=== PATIENT | male | born 1960 | race African-American/Black ===

== ENCOUNTER 2016-10-15 01:42 | Inpatient (IN) | payer OTHER ==
[~2016-10-15] VITALS: Ht 167.6 cm; Wt 95.3 kg
[2016-10-15 02:11] LABS: BASO % 1 % (0-3); EOS % 1 % (0-3); HEMATOCRIT 38.1 % (39.0-53.0); HEMOGLOBIN 12.2 g/dL (13.0-17.5); LYMPH # 1.7 x10^3/uL (1.0-4.8); LYMPH % 42 % (24-48); MEAN CORPUSCULAR HEMOGLOBIN 27 pg (25-35); MEAN CORPUSCULAR HGB CONC 32 g/dL (31-37); MEAN CORPUSCULAR VOLUME 84 fL (79-100); MONO % 10 % (0-9); NEUT % 46 % (31-73); PLATELET COUNT 143 x10^3/uL (140-400); RED BLOOD COUNT 4.52 x10^6/uL (4.30-5.70); RED CELL DISTRIBUTION WIDTH 14.7 % (11.5-14.5); WHITE BLOOD COUNT 4.1 x10^3/uL (4.0-11.0)
--- NOTE | 2016-10-15 02:16 | PHYS DOC ---
Past Medical History Past Medical History: GERD, High Cholesterol, Hypertension, NH Additional Past Medical Histor: STATES NH'S X 3-4, NO STENTS PLACED, HEMORRHOIDS,TINEA PEDIS Past Surgical History: Other Additional Past Surgical Histo: HEMORRHOIDS Alcohol Use: None Drug Use: None Adult General Chief Complaint Chief Complaint: CHEST PAIN HPI HPI Patient is a 56 year old male who presents with chest pain that started at midnight tonight while at rest. He states he had severe central chest pressure that radiated toward his neck. This lasted possibly 45 minutes. He was given 2 nitroglycerin in [facility] without relief of his symptoms, but his symptoms resolved prior to EMS transport. He is currently asymptomatic. He was not given aspirin due to aspirin allergy. He denies lightheadedness, nausea or vomiting, fever or chills, cough, hemoptysis, leg pain or swelling, abdominal pain, diarrhea, dysuria. 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 He further clarifies this to say that he has had multiple admissions for chest pain , but never had a heart catheterization and does not actually know if these were confirmed MIs. He cannot name a facility where he was prior treated. He cannot name a voice studies director that he has seen prior. Review of Systems Review of Systems Constitutional: Denies fever or chills [] Eyes: Denies change in visual acuity, redness, or eye pain [] HENT: Denies nasal congestion or sore throat [] Respiratory: Denies cough or shortness of breath [] Cardiovascular: No additional information not addressed in HPI [] GI: Denies abdominal pain, nausea, vomiting, bloody stools or diarrhea [] : Denies dysuria or hematuria [] Musculoskeletal: Denies back pain or joint pain [] Integument: Denies rash or skin lesions [] Neurologic: Denies headache, focal weakness or sensory changes [] Endocrine: Denies polyuria or polydipsia [] Allergies Allergies Allergies Coded Allergies Type Severity Reaction Last Updated Verified aspirin Allergy Unknown 10/15/16 Yes Physical Exam Physical Exam Constitutional: Well developed, well nourished, no acute distress, non-toxic appearance. [] HENT: Normocephalic, atraumatic, bilateral external ears normal, oropharynx moist, nose normal. [] Eyes: PERRLA, EOMI. [] Neck: Normal range of motion, supple. [] Cardiovascular:Heart rate regular rhythm [] Lungs & Thorax: Bilateral breath sounds clear to auscultation. No chest wall tenderness [] Abdomen: Bowel sounds normal, soft, no tenderness. [] Skin: Warm, dry, no erythema, no rash. [] Back: No tenderness, no CVA tenderness. [] Extremities: No tenderness, ROM intact, bilateral trace lower extremity edema, no palpable cord. [] Neurologic: Alert and oriented X 3, normal motor function, normal sensory function, no focal deficits noted. [] Psychologic: Affect normal, judgement normal, mood normal. [] Current Patient Data Vital Signs Vital Signs Date Time Temp Pulse Resp B/P Pulse Ox O2 Delivery O2 Flow Rate FiO2 10/15/16 01:42 98.7 64 18 141/87 97 Room Air 98.7 Lab Values Laboratory Tests Test 10/15/16 02:00 White Blood Count 4.1x10^3/uL (4.0-11.0) Red Blood Count 4.52x10^6/uL (4.30-5.70) Hemoglobin 12.2g/dL (13.0-17.5) L Hematocrit 38.1% (39.0-53.0) L Mean Corpuscular Volume 84fL (79-100) Mean Corpuscular Hemoglobin 27pg (25-35) Mean Corpuscular Hemoglobin Concent 32g/dL (31-37) Red Cell Distribution Width 14.7% (11.5-14.5) H Platelet Count 143x10^3/uL (140-400) Neutrophils (%) (Auto) 46% (31-73) Lymphocytes (%) (Auto) 42% (24-48) Monocytes (%) (Auto) 10% (0-9) H Eosinophils (%) (Auto) 1% (0-3) Basophils (%) (Auto) 1% (0-3) Neutrophils # (Auto) 1.9x10^3uL (1.8-7.7) Lymphocytes # (Auto) 1.7x10^3/uL (1.0-4.8) Monocytes # (Auto) 0.4x10^3/uL (0.0-1.1) Eosinophils # (Auto) 0.1x10^3/uL (0.0-0.7) Basophils # (Auto) 0.0x10^3/uL (0.0-0.2) Sodium Level 142mmol/L (136-145) Potassium Level 4.1mmol/L (3.5-5.1) Chloride Level 108mmol/L (98-107) H Carbon Dioxide Level 28mmol/L (21-32) Anion Gap 6 (6-14) Blood Urea Nitrogen 12mg/dL (8-26) Creatinine 1.2mg/dL (0.7-1.3) Estimated GFR (Cockcroft-Gault) 75.5 Glucose Level 122mg/dL (70-99) H Calcium Level 8.9mg/dL (8.5-10.1) Troponin I Quantitative 0.033ng/mL (0.000-0.055) OR-Ewi-Q-Type Natriuretic Peptide 23pg/mL (0-124) Laboratory Tests 10/15/16 02:00 Laboratory Tests 10/15/16 02:00 EKG EKG EKG as interpreted by me and sinus rhythm with PACs, rate 66, DE 204, QTc 423, no ST-T changes Radiology/Procedures Radiology/Procedures Chest xray as interpreted by me with no acute cardiopulmonary disease process Course & Med Decision Making Course & Med Decision Making Pertinent Labs and Imaging studies reviewed. (See chart for details) Workup is unremarkable. JIMENEZ score is 1. He has frequent PVCs on his EKG. He remains without chest pain. Given age and comorbidities, will admit for ACS rule out and cardiology consultation. Discussed case with Dr. Candelaria, who will admit. Cardiology consultation placed. Dragon Disclaimer Dragon Disclaimer This electronic medical record was generated, in whole or in part, using a voice recognition dictation system. Departure Departure Impression: Primary Impression: Chest pain Disposition: ADMITTED INPATIENT Condition: STABLE Referrals: NO PCP (PCP) Problem Qualifiers Primary Impression: Chest pain Chest pain type: other chest pain Qualified Code: R07.89 - Other chest pain Mohit ALLEN MD Oct 15, 2016 02:15
[2016-10-15 02:25] LABS: CALCIUM 8.9 mg/dL (8.5-10.1); CREATININE 1.2 mg/dL (0.7-1.3); GFR 75.5; POTASSIUM 4.1 mmol/L (3.5-5.1)
[2016-10-15 02:36] LABS: BARBITURATES NEG (NEG); BENZODIAZEPINES NEG (NEG); CANNABINOIDS NEG (NEG); COCAINE NEG (NEG); ETHANOL, URINE NEG (NEG); METHADONE NEG (NEG); OPIATES NEG (NEG); PHENCYCLIDINE NEG (NEG)
[2016-10-15] MEDS ORDERED: NITROGLYCERIN SUBLINGUAL 0.4 MG BOTTLE OF 25. SL PRN ×2 (02:45→08:30)
[2016-10-15] MEDS ORDERED: ACETAMINOPHEN 325 MG TABLET. PO PRN (02:45)
[2016-10-15] MEDS ORDERED: ONDANSETRON PF 4 MG/2 ML VIAL. IV PRN (02:45)
[2016-10-15 03:07] VITALS: BP 131/88
[2016-10-15] MEDS ORDERED: LISI40TA PO (04:19)
[2016-10-15] MEDS ORDERED: NITR0.4T6 SL (04:19)
[2016-10-15] MEDS ORDERED: DOCU-27 PO (04:19)
[2016-10-15] MEDS ORDERED: DIBU28OI RC (04:19)
[2016-10-15] MEDS ORDERED: ATOR10TA60 PO (04:19)
[2016-10-15] MEDS ORDERED: MELO-156 PO (04:19)
[2016-10-15] MEDS ORDERED: AMLO5TAB2 PO (04:19)
[2016-10-15] MEDS ORDERED: PANT40TA5 PO ×2 (04:19→15:55)
--- NOTE | 2016-10-15 06:18 | EKG ---
[facility] [address] [place] [address] Test Date: 2016-10-15 Test Time: 01:54:50 Pat Name: NIVIA SNELL Department: Room: 262 1 Gender: M Command And Control Specialist: : 1960 Requested By: Mohit ALLEN Order Number: [id number] Reading MD: Ever Fay Measurements Intervals [place] Rate: 66 P: 90 [place]: 204 QRS: 9 QRSD: 84 T: -11 QT: 402 QTc: 423 Interpretive Statements SINUS RHYTHM ATRIAL PREMATURE COMPLEX(ES), TRIGEMINY Electronically Signed On 10-18-2016 10:16:10 IT ARCHITECTURE CONSULTANT by Ever Fay
[2016-10-15 07:00] VITALS: BP 117/67
--- NOTE | 2016-10-15 07:02 | RAD ---
Indication: Chest pain. Time of exam 0154 hours. FINDINGS: The heart size is normal. The lungs are clear. No pleural effusion or pneumothorax is identified. The pulmonary vascularity is normal. IMPRESSION: No acute abnormality detected.
--- NOTE | 2016-10-15 08:13 | EKG ---
[facility] [address] [place] [address] Test Date: 2016-10-15 Test Time: 08:06:13 Pat Name: NIVIA SNELL Department: Room: 262 1 Gender: M Ductfixing Plumber: FERDINAND : 1960 Requested By: Mohit ALLEN Order Number: [id number] Reading MD: Ever Fay Measurements Intervals [place] Rate: 67 P: 54 [place]: 214 QRS: 25 QRSD: 80 T: -3 QT: 398 QTc: 423 Interpretive Statements SINUS RHYTHM ATRIAL PREMATURE COMPLEX(ES) Electronically Signed On 10-18-2016 10:17:45 REVERSE UNIT OPERATOR FISHERMAN by Ever Fay
[2016-10-15] MEDS ORDERED: DOCUSATE SODIUM 100 MG CAPSULE PO SCH (09:00)
[2016-10-15] MEDS ORDERED: AMLODIPINE BESYLATE 5 MG TABLET PO SCH (09:00)
[2016-10-15] MEDS ORDERED: PANTOPRAZOLE 40 MG TABLET. PO SCH (09:00)
[2016-10-15] MEDS ORDERED: MELOXICAM 7.5 MG TABLET PO SCH (09:00)
[2016-10-15] MEDS ORDERED: LISINOPRIL 20 MG TABLET PO SCH (09:00)
--- NOTE | 2016-10-15 09:15 | PDOC2 ---
KIRBY WALL MANAGER MARKETING COMMUNICATION 10/15/16 0915: CARDIAC CONSULT DATE OF CONSULT Date of Consult DATE: 10/15/16 TIME: 09:03 REASON FOR CONSULT Reason for Consult: Chest pain REFERRING PHYSICIAN Referring Physician: Salvador SOURCE Source: Chart review, Patient HISTORY OF PRESENT ILLNESS HISTORY OF PRESENT ILLNESS This is a pleasant 56 yo male admitted for complains of chest pain. Reports that he has been taking routine mobic until recently in which itappears he has been taking this intermittently for pain such as yesterday when he developed chest pain. Reports that he has daily heartburn and GERD and he stopped taking his reflux medication about 2 months ago. Reported that yesterday 1 hour after lunch while upright and playing cards, he started developing this upper mid chest pressure which eventually went to his epigastric region. NO radiation to arms or jaw. This was associated with diaphoresis. He has been noticing though that he has been winded with activities such as walking and also had diaphoresis yesterday. No complains of palpitations, nausea or dizziness. Verbalized possible heart attack when he was 20 yo and as well as 6 months ago at the facility where he is at but no evidence or has ever experience any degree of ischemic workup. He was given x2 NTG and there was no relief initially. Currently he is asymptomatic. He also could not remember any of the facility he was admitted in remote past for further clarification. Denies any falls, injury, VTE in the past. PAST MEDICAL HISTORY Cardiovascular: HTN, Hyperlipidemia Pulmonary: No pertinent hx CENTRAL NERVOUS SYSTEM: Other (No pertinent history) GI: Constipation, GERD, Gastritis, Hemorrhoids, Other (hiatal hernia) Heme/Onc: No pertinent hx Hepatobiliary: No pertinent hx Psych: No pertinent hx Musculoskeletal: Osteoarthritis Rheumatologic: No pertinent hx Infectious disease: No pertinent hx ENT: No pertinent hx Renal/: No pertinent hx Endocrine: Diabetes (2) Dermatology: No pertinent hx PAST SURGICAL HISTORY Past Surgical History: Other (hemorrhoidectomy) FAMILY HISTORY Family History: Diabetes, Hypertension SOCIAL HISTORY Smoke: No ALCOHOL: none Drugs: None Lives: Alone (correctional facility) ALLERGIES ALLERGIES: Coded Allergies: aspirin (Verified Allergy, Unknown, 10/15/16) ROS Review of System 14 point ROS evaluated with pertinent positives noted per HPI PHYSICAL EXAM General: Alert, Oriented X3, Cooperative, No acute distress HEENT: Atraumatic, Mucous membr. moist/pink Lungs: Clear to auscultation, Normal air movement Heart: Regular rate, Normal S1, Normal S2, Other (2/6 systolic murmur to CHRISTI border and LLS) Abdomen: Soft, No tenderness Extremities: No cyanosis, Other (trace LE edema) Skin: No breakdown, No significant lesion Neuro: Normal speech, Sensation intact Psych/Mental Status: Mental status NL, Mood NL MUSCULOSKELETAL: Osteoarthritic changes both hands VITALS VITALS Vital Signs Date Time Temp Pulse Resp B/P Pulse Ox O2 Delivery O2 Flow Rate FiO2 10/15/16 07:00 98.4 62 17 117/67 100 Room Air 98.4 LABS Lab: Laboratory Tests Test 10/15/16 02:00 10/15/16 02:15 10/15/16 07:45 White Blood Count 4.1x10^3/uL (4.0-11.0) Red Blood Count 4.52x10^6/uL (4.30-5.70) Hemoglobin 12.2g/dL (13.0-17.5) Hematocrit 38.1% (39.0-53.0) Mean Corpuscular Volume 84fL (79-100) Mean Corpuscular Hemoglobin 27pg (25-35) Mean Corpuscular Hemoglobin Concent 32g/dL (31-37) Red Cell Distribution Width 14.7% (11.5-14.5) Platelet Count 143x10^3/uL (140-400) Neutrophils (%) (Auto) 46% (31-73) Lymphocytes (%) (Auto) 42% (24-48) Monocytes (%) (Auto) 10% (0-9) Eosinophils (%) (Auto) 1% (0-3) Basophils (%) (Auto) 1% (0-3) Neutrophils # (Auto) 1.9x10^3uL (1.8-7.7) Lymphocytes # (Auto) 1.7x10^3/uL (1.0-4.8) Monocytes # (Auto) 0.4x10^3/uL (0.0-1.1) Eosinophils # (Auto) 0.1x10^3/uL (0.0-0.7) Basophils # (Auto) 0.0x10^3/uL (0.0-0.2) Sodium Level 142mmol/L (136-145) Potassium Level 4.1mmol/L (3.5-5.1) Chloride Level 108mmol/L (98-107) Carbon Dioxide Level 28mmol/L (21-32) Anion Gap 6 (6-14) Blood Urea Nitrogen 12mg/dL (8-26) Creatinine 1.2mg/dL (0.7-1.3) Estimated GFR (Cockcroft-Gault) 75.5 Glucose Level 122mg/dL (70-99) Calcium Level 8.9mg/dL (8.5-10.1) Troponin I Quantitative 0.033ng/mL (0.000-0.055) 0.028ng/mL (0.000-0.055) QI-Unx-R-Type Natriuretic Peptide 23pg/mL (0-124) Urine Opiates Screen Neg (NEG) Urine Methadone Screen Neg (NEG) Urine Barbiturates Neg (NEG) Urine Phencyclidine Screen Neg (NEG) Urine Amphetamine/Methamphetamine Neg (NEG) Urine Benzodiazepines Screen Neg (NEG) Urine Cocaine Screen Neg (NEG) Urine Cannabinoids Screen Neg (NEG) Urine Ethyl Alcohol Neg (NEG) ASSESSMENT/PLAN ASSESSMENT/PLAN 1. Chest pain: Troponin series normal ruling UT. EKG SR with PACs with diffuse nonspecific ST-T wave changes. CXR unremarkable. Suspect GI. Not clear for any past CAD but significant cardiac risk factors are noted with mixed features. TTE today and will proceed with MPI to completely rule out underlying ischemia. ECASA. TSH 2. HTN: controlled, continue with current regimen 3. HLP: lipid panel. statin 4. Chronic NSAID use with hx of hiatal hernia: Routine distant use and now intermittent Mobic, stopped PPI 2 months ago. Defer to PCP. 5. DM2 vs Dysmetabolic syndrome: Verbalized DM it but no meds. Per PCP. Problems: RAQUEL BOWDEN MD 10/15/16 5237: CARDIAC CONSULT ALLERGIES ALLERGIES: Coded Allergies: aspirin (Verified Allergy, Unknown, 10/15/16) ASSESSMENT/PLAN ASSESSMENT/PLAN Patient seen and examined. Agree with RIGGER SUPERVISOR's assessment and plan. CP atypical. UT ruled out. 2D echo showed normal LV function. MPI did not show any significant ischemia. OK for DC from cardiac standpoint. Thank you for your consultation. Problems: KIRBY WALL APRN Oct 15, 2016 09:15 RAQUEL BOWDEN MD Oct 15, 2016 16:39
[2016-10-15 09:33] LABS: CHOLESTEROL/HDL RATIO 3.4
[2016-10-15 09:52] LABS: ALBUMIN 3.2 g/dL (3.4-5.0); DIRECT BILIRUBIN 0.1 mg/dL (0.0-0.2); TOTAL BILIRUBIN 0.3 mg/dL (0.2-1.0); TOTAL PROTEIN 6.6 g/dL (6.4-8.2)
[2016-10-15] MEDS ORDERED: LIDOCAINE (700MG/PATCH) PATCH. TD SCH (10:00)
[2016-10-15 11:00] VITALS: BP 126/73
[2016-10-15] MEDS ORDERED: REGADENOSON 0.4 MG/5 ML DISP.SYRIN. IV ONE (11:45)
--- NOTE | 2016-10-15 12:06 | PDOC1 ---
History and Physical Date of Admission Date of Admission DATE: 10/15/16 TIME: 12:00 Identification/Chief Complaint Chief Complaint chest pain Source Source: Chart review, Patient History of Present Illness History of Present Illness Mr. Corona, is a 56 yo incarcerated male, [facility], admitted w/ chest pain. intermittently severe pain mid-chest. yesterday at rest while playing cards. Pain 6/10, mid sternal, not abd, no reproducible, resolved maybe after nitro not improved w. movement, pain worse than prior AL pain not like his prior GERD - has not been taking PPI he took nitro from his room before going to [facility] no sweets or chills or dyspnea or nausea, pain now mostly resolved Past Medical History Cardiovascular: HTN, Hyperlipidemia Pulmonary: No pertinent hx CENTRAL NERVOUS SYSTEM: Other (No pertinent history) GI: Constipation, GERD, Gastritis, Hemorrhoids, Other (hiatal hernia) Heme/Onc: No pertinent hx Hepatobiliary: No pertinent hx Psych: No pertinent hx Musculoskeletal: Osteoarthritis Rheumatologic: No pertinent hx Infectious disease: No pertinent hx ENT: No pertinent hx Renal/: No pertinent hx Endocrine: Diabetes (2) Dermatology: No pertinent hx Past Surgical History Past Surgical History: Other (hemorrhoidectomy) Family History Family History: Diabetes, Hypertension Social History Smoke: No ALCOHOL: none Drugs: None Current Problem List Problem List Problems Medical Problems: (1) Chest pain Status: Acute Problems: Current Medications Current Medications Current Medications Ondansetron HCl (Zofran) 4 mg PRN Q8HRS PRN IV NAUSEA/VOMITING; Start 10/15/16 at 02:45; Stop 10/16/16 at 02:44 Acetaminophen (Tylenol) 650 mg PRN Q4HRS PRN PO FEVER; Start 10/15/16 at 02:45 ; Stop 10/16/16 at 02:44 Nitroglycerin (Nitrostat) 0.4 mg PRN Q5MIN PRN SL CHEST PAIN; Start 10/15/16 at 02:45; Stop 10/16/16 at 02:44 Amlodipine Besylate (Norvasc) 5 mg DAILY PO ; Start 10/15/16 at 09:00 Atorvastatin Calcium (Lipitor) 10 mg HS PO ; Start 10/15/16 at 21:00 Docusate Sodium (Colace) 100 mg BID PO ; Start 10/15/16 at 09:00 Lisinopril (Prinivil) 20 mg DAILY PO ; Start 10/15/16 at 09:00 Meloxicam (Mobic) 7.5 mg BID PO ; Start 10/15/16 at 09:00 Nitroglycerin (Nitrostat) 0.4 mg PRN Q1HR PRN SL chest pain; Start 10/15/16 at 08:30 Pantoprazole Sodium (Protonix) 40 mg BID66 PO ; Start 10/15/16 at 09:00 Lidocaine (Lidoderm) 1 patch DAILY TD ; Start 10/15/16 at 10:00 Regadenoson (Lexiscan) 0.4 mg 1X ONCE IV ; Start 10/15/16 at 11:45; Stop at 11:46; Status DC Active Scripts Active Reported Pantoprazole Sodium 40 Mg Tablet.dr 1 Tab PO BID66 NITROGLYCERIN SubLingual (Nitroglycerin) 0.4 Mg Tab.subl 1 Tab SL UD Meloxicam 7.5 Mg Tablet 1 Tab PO BID Lisinopril 40 Mg Tablet 1 Tab PO DAILY Dibucaine 28 Gm Oint...g. 28 Gm RC Colace (Docusate Sodium) 100 Mg Capsule 1 Cap PO BID Atorvastatin Calcium 10 Mg Tablet 10 Mg PO HS Amlodipine Besylate 5 Mg Tablet 5 Mg PO DAILY Allergies Allergies: Coded Allergies: aspirin (Verified Allergy, Unknown, 10/15/16) ROS Review of System weight gain General: No: Appetite, Chills, Fatigue, Malaise, Night Sweats, Other PSYCHOLOGICAL ROS: No: Anxiety, Behavioral Disorder, Concentration difficultie , Decreased libido, Depression, Disorientation, Hallucinations, Hostility, Irritablity, Memory difficulties, Mood Swings, Obsessive thoughts, Other, Physical abuse, Sexual abuse, Sleep disturbances, Suicidal ideation Eyes: No Blurry vision, No Decreased vision, No Double vision, No Dry eyes, No Excessive tearing, No Eye Pain, No Itchy Eyes, No Loss of vision, No Other, No Photophobia, No Scotomata, No Uses contacts, No Uses glasses HEENT: No: Epistaxis, Heacaches, Hearing change, Nasal congestion, Nasal discharge, Oral lesions, Other, Sinus pain, Sneezing, Snoring, Sore Throat, Tinnitus, Vertigo, Visual Changes, Vocal changes Respiratory: No: Cough, Hemoptysis, Orthopnea, Other, Pleuritic Pain, SOB with excertion, Shortness of breath, Sputum Changes, Stridor, Tachypnea, Wheezing Cardiovascular: yes Chest Pain, yes Edema, No Lt Headedness, No Orthopnea, No Other, No Palpitations, No Paroxysmal Noc. Dyspnea Gastrointestinal: No Abdominal Pain, No Constipation, No Diarrhea, No Hematochezia, No Melena, No Nausea, No Other, No Vomiting Genitourinary: No , No , No , No , No , No , No , No Discharge, No Dysuria, No Flank Pain, No Frequency, No Hematuria, No Incontinence, No Other, No Pain, No Retention, No Urgency Musculoskeletal: Yes Joint Pain, Yes Joint Stiffness, No Gait Disturbance, No Joint Swelling, No Muscle Pain, No Muscular Weakness , No Other, No Pain In:, No Swelling In: Neurological: No Behavorial Changes, No Bowel/Bladder ControlChng, No Confusion , No Dizziness, No Gait Disturbance, No Headaches, No Impaired Coord/balance, No Memory Loss, No Numbness/Tingling, No Other, No Seizures, No Speech Problems , No Tremors, No Visual Changes, No Weakness Skin: No Acne, No Dry Skin, No Eczema, No Hair Changes, No Lumps, No Mole Changes, No Mottling, No Nail Changes, No Other, No Pruritus, No Rash, No Skin Lesion Changes Physical Exam General: Alert, Oriented X3, Cooperative HEENT: Atraumatic, PERRLA Lungs: Clear to auscultation Heart: S1S2 Abdomen: Normal bowel sounds, Soft Extremities: No clubbing Skin: No rashes Neuro: Normal gait, Strength at 5/5 X4 ext Psych/Mental Status: Mental status NL Vitals Vitals Vital Signs Date Time Temp Pulse Resp B/P Pulse Ox O2 Delivery O2 Flow Rate FiO2 10/15/16 11:00 98.6 55 18 126/73 98 Room Air 98.6 Labs Labs Laboratory Tests Test 10/15/16 02:00 10/15/16 02:15 10/15/16 07:45 White Blood Count 4.1x10^3/uL (4.0-11.0) Red Blood Count 4.52x10^6/uL (4.30-5.70) Hemoglobin 12.2g/dL (13.0-17.5) Hematocrit 38.1% (39.0-53.0) Mean Corpuscular Volume 84fL (79-100) Mean Corpuscular Hemoglobin 27pg (25-35) Mean Corpuscular Hemoglobin Concent 32g/dL (31-37) Red Cell Distribution Width 14.7% (11.5-14.5) Platelet Count 143x10^3/uL (140-400) Neutrophils (%) (Auto) 46% (31-73) Lymphocytes (%) (Auto) 42% (24-48) Monocytes (%) (Auto) 10% (0-9) Eosinophils (%) (Auto) 1% (0-3) Basophils (%) (Auto) 1% (0-3) Neutrophils # (Auto) 1.9x10^3uL (1.8-7.7) Lymphocytes # (Auto) 1.7x10^3/uL (1.0-4.8) Monocytes # (Auto) 0.4x10^3/uL (0.0-1.1) Eosinophils # (Auto) 0.1x10^3/uL (0.0-0.7) Basophils # (Auto) 0.0x10^3/uL (0.0-0.2) Sodium Level 142mmol/L (136-145) Potassium Level 4.1mmol/L (3.5-5.1) Chloride Level 108mmol/L (98-107) Carbon Dioxide Level 28mmol/L (21-32) Anion Gap 6 (6-14) Blood Urea Nitrogen 12mg/dL (8-26) Creatinine 1.2mg/dL (0.7-1.3) Estimated GFR (Cockcroft-Gault) 75.5 Glucose Level 122mg/dL (70-99) Calcium Level 8.9mg/dL (8.5-10.1) Troponin I Quantitative 0.033ng/mL (0.000-0.055) 0.028ng/mL (0.000-0.055) YJ-Lcr-G-Type Natriuretic Peptide 23pg/mL (0-124) Triglycerides Level 69mg/dL (0-150) Cholesterol Level 127mg/dL (0-200) LDL Cholesterol, Calculated 76mg/dL (0-100) VLDL Cholesterol, Calculated 14mg/dL (0-40) HDL Cholesterol 37mg/dL (40-60) Cholesterol/HDL Ratio 3.4 Urine Opiates Screen Neg (NEG) Urine Methadone Screen Neg (NEG) Urine Barbiturates Neg (NEG) Urine Phencyclidine Screen Neg (NEG) Urine Amphetamine/Methamphetamine Neg (NEG) Urine Benzodiazepines Screen Neg (NEG) Urine Cocaine Screen Neg (NEG) Urine Cannabinoids Screen Neg (NEG) Urine Ethyl Alcohol Neg (NEG) Total Bilirubin 0.3mg/dL (0.2-1.0) Direct Bilirubin 0.1mg/dL (0.0-0.2) Aspartate Amino Transf (AST/SGOT) 20U/L (15-37) Alanine Aminotransferase (ALT/SGPT) 29U/L (16-63) Alkaline Phosphatase 108U/L (46-116) Total Protein 6.6g/dL (6.4-8.2) Albumin 3.2g/dL (3.4-5.0) Lipase 214U/L (73-393) Thyroid Stimulating Hormone (TSH) 0.916uIU/mL (0.358-3.74) Laboratory Tests Test 10/15/16 02:00 10/15/16 02:15 10/15/16 07:45 White Blood Count 4.1x10^3/uL (4.0-11.0) Red Blood Count 4.52x10^6/uL (4.30-5.70) Hemoglobin 12.2g/dL (13.0-17.5) Hematocrit 38.1% (39.0-53.0) Mean Corpuscular Volume 84fL (79-100) Mean Corpuscular Hemoglobin 27pg (25-35) Mean Corpuscular Hemoglobin Concent 32g/dL (31-37) Red Cell Distribution Width 14.7% (11.5-14.5) Platelet Count 143x10^3/uL (140-400) Neutrophils (%) (Auto) 46% (31-73) Lymphocytes (%) (Auto) 42% (24-48) Monocytes (%) (Auto) 10% (0-9) Eosinophils (%) (Auto) 1% (0-3) Basophils (%) (Auto) 1% (0-3) Neutrophils # (Auto) 1.9x10^3uL (1.8-7.7) Lymphocytes # (Auto) 1.7x10^3/uL (1.0-4.8) Monocytes # (Auto) 0.4x10^3/uL (0.0-1.1) Eosinophils # (Auto) 0.1x10^3/uL (0.0-0.7) Basophils # (Auto) 0.0x10^3/uL (0.0-0.2) Sodium Level 142mmol/L (136-145) Potassium Level 4.1mmol/L (3.5-5.1) Chloride Level 108mmol/L (98-107) Carbon Dioxide Level 28mmol/L (21-32) Anion Gap 6 (6-14) Blood Urea Nitrogen 12mg/dL (8-26) Creatinine 1.2mg/dL (0.7-1.3) Estimated GFR (Cockcroft-Gault) 75.5 Glucose Level 122mg/dL (70-99) Calcium Level 8.9mg/dL (8.5-10.1) Troponin I Quantitative 0.033ng/mL (0.000-0.055) 0.028ng/mL (0.000-0.055) NJ-Vfn-E-Type Natriuretic Peptide 23pg/mL (0-124) Triglycerides Level 69mg/dL (0-150) Cholesterol Level 127mg/dL (0-200) LDL Cholesterol, Calculated 76mg/dL (0-100) VLDL Cholesterol, Calculated 14mg/dL (0-40) HDL Cholesterol 37mg/dL (40-60) Cholesterol/HDL Ratio 3.4 Urine Opiates Screen Neg (NEG) Urine Methadone Screen Neg (NEG) Urine Barbiturates Neg (NEG) Urine Phencyclidine Screen Neg (NEG) Urine Amphetamine/Methamphetamine Neg (NEG) Urine Benzodiazepines Screen Neg (NEG) Urine Cocaine Screen Neg (NEG) Urine Cannabinoids Screen Neg (NEG) Urine Ethyl Alcohol Neg (NEG) Total Bilirubin 0.3mg/dL (0.2-1.0) Direct Bilirubin 0.1mg/dL (0.0-0.2) Aspartate Amino Transf (AST/SGOT) 20U/L (15-37) Alanine Aminotransferase (ALT/SGPT) 29U/L (16-63) Alkaline Phosphatase 108U/L (46-116) Total Protein 6.6g/dL (6.4-8.2) Albumin 3.2g/dL (3.4-5.0) Lipase 214U/L (73-393) Thyroid Stimulating Hormone (TSH) 0.916uIU/mL (0.358-3.74) VTE Prophylaxis Ordered VTE Prophylaxis Devices: No VTE Pharmacological Prophylaxi: Yes Assessment/Plan Assessment/Plan acute chest pain Angina, CE neg x2, lipids pending CV consult [facility], obesity BMI 34 Hx CAD incarcerated, KIRSTEN BRYANT MD Oct 15, 2016 12:06
[2016-10-15] MEDS ORDERED: ENOXAPARIN 40 MG/0.4 ML DISP.SYRIN. SQ SCH (13:00)
--- NOTE | 2016-10-15 14:37 | EKG ---
[facility] [address] [place] [address] Test Date: 2016-10-15 Test Time: 14:36:49 Pat Name: NIVIA SNELL Department: Room: 262 1 Gender: M Senior Instructional Designer: FERDINAND : 1960 Requested By: Mohit ALLEN Order Number: [id number] Reading MD: Ever Fay Measurements Intervals [place] Rate: 67 P: 46 CO: 210 QRS: 28 QRSD: 82 T: 1 QT: 394 QTc: 419 Interpretive Statements SINUS RHYTHM ATRIAL PREMATURE COMPLEX(ES) Electronically Signed On 10-18-2016 10:21:51 AUTOMOBILE SERVICE ADVISOR by Ever Fay
--- NOTE | 2016-10-15 14:40 | RAD ---
APPROVED REPORT Test Type: Pharmacological Stress Nurse/Tech: Jazmin Hoover R.N. Test Indications: chest pain Cardiac History: [place] at 20, htn, Medications: see ehr Medical History: see ehr Resting ECG: sr with pac Resting Heart Rate: 67 bpm Resting Blood Pressure: 123/68mmHg Pretest Chest Pain: No chest pain Nurse/Tech Notes lungscta, heart tones regular, good radial pulse Consent: The procedure was explained to the patient in lay terms. Informed consent was witnessed. Fernando eout was entered into [employer]. History and Stress Test performed by Jazmin Hoover R.N. Pharm. Details Pharmacologic stress testing was performed using 0.4mg per 5ml of regadenoson given intravenously ove r 7-10 seconds. Stress Symptoms No chest pain or symptoms. POST EXERCISE Reason for Termination: Infusion complete Target HR: No Max HR: 99 bpm Max Blood Pressure: 151/69mmHg Chest Pain: No. Arrhythmia: No. ST Change: No. INTERPRETATION Stress EKG Conclusion: Baseline EKG showed sinus rhythm. No ischemic changes at peak stress. No arr hythmias. Imaging Protocol IMAGE PROTOCOL: Rest Tc-99m/stress Tc-99m 1 day Rest: Stress: Viability: Radiopharm.Tc99m GysoozkrzUf14n Sestamibi Pqqn91aIx 35mCi Duration 15min. 10min. Img Date 10/15/2016 10/15/2016 Inj-Img Pupa39vhi. 60min. Rest Admin Site:IV - Right HandAdministrator:Erma Galo, RT (R)(N) Stress Admin Site: IV - Right HandAdministrator: CHET Yan, ARRT (R)(N) STRESS DATA End Diast. Vol.131.0mlAv. Heart Rate69.0bpm End Syst. Vol.42.0mlCO Index BSA0.0L/min Myocardial Ejre670.0gEject. Yxlrqzkh55.0% Stress Rates Pk. Fill Rate2.26EDV/secLVtime Pk. Fill 119.94msec Pk. Empty Rate2.76ESV/secLVtime Pk. Pacyj519.37msec 09/21 Pk. Fill1.63EDV/sec Stress Scores Regional WT0.00Summed WT0.00 Regional WM0.00Summed WM0.00 Study quality was good. Left Ventricular size was Normal at Rest and Stress. Lung uptake was Normal. Left Ventricular ejection fraction is 68%. The rest and stress images show normal perfusion, normal contraction and thickening. LV Perf. Quant 17 Seg. SSS0.00 17 Seg. SRS0.00 17 Seg. SDS0.00 Stress Defect Extent (% LAD)0.00Rest Defect Extent (% LAD)0.00Rev. Defect Extent (% LAD)0.00 Stress Defect Extent (% LCX) 0.00Rest Defect Extent (% LCX)0.00Rev. Defect Extent (% LCX)0.00 Stress Defect Extent (% RCA)0.00Rest Defect Extent (% RCA)0.00Rev. Defect Extent (% RCA)0.00 Stress Defect Extent (% NATALIA)0.00Rest Defect Extent (% NATALIA)0.00Rev. Defect Extent (% NATALIA)0.00 Conclusion 1. Regadenoson cardioisotope stress test did not show any evidence of ischemia or infarct. 2. Normal left ventricular systolic function with ejection fraction calculated at 68%. 3. Low risk for cardiac events.
--- NOTE | 2016-10-15 14:59 | CARD ---
APPROVED REPORT EXAM: Two-dimensional and M-mode echocardiogram with Doppler and color Doppler. Other Information Quality : GoodHR: 66bpm Rhythm : Arrhythmia- non specific INDICATION Chest Pain RISK FACTORS Hypertension 2D DIMENSIONS RVDd2.6 (2.9-3.5cm)Left Atrium(2D)3.8 (1.6-4.0cm) IVSd1.1 (0.7-1.1cm)Aortic Root(2D)2.9 (2.0-3.7cm) LVDd4.6 (3.9-5.9cm)LVOT Diameter2.6 (1.8-2.4cm) PWd1.1 (0.7-1.1cm)LVDs2.7 (2.5-4.0cm) FS (%) 39.9 %SV67.3 ml LVEF(%)70.6 (>50%) Aortic Valve AoV Peak Jimmie.196.7cm/sAoV VTI37.6cm AO Peak GR.15.5mmHgLVOT Peak Jimmie.112.0cm/s AO Mean GR.8mmHgAVA (VMAX)3.12cm2 Mitral Valve MV E Bprfegtl94.8cm/sMV E Peak Gr.4mmHg MV DECEL [id number] A Nmctamfj30.8cm/s MV E Mean Gr.1mmHgE/A Ratio1.4 MV A Hrhsbddf207sb Pulmonary Valve PV Peak Mzzzwudk664.1cm/s Tricuspid Valve TR P. Beqmlawr449wy/sTR Peak Gr.17mmHg Pulmonary Vein S1 Zfqjdlfc74.2cm/sD2 Kdvejbfr05.0cm/s PVa dddtlidx86ftwd LEFT VENTRICLE The left ventricle is normal size. There is mild concentric left ventricular hypertrophy. The left ve ntricular systolic function is normal. The Ejection Fraction is 65-70%. There is normal LV segmental wall motion. Transmitral Doppler flow pattern is Grade I-abnormal relaxation pattern. RIGHT VENTRICLE The right ventricle is normal size. There is normal right ventricular wall thickness. The right ventr icular systolic function is normal. ATRIA The left atrium is moderately dilated. The right atrium size is normal. The interatrial septum is int act with no evidence for an atrial septal defect or patent foramen ovale as noted on 2-D or Doppler i maging. AORTIC VALVE The aortic valve is normal in structure and function. Doppler and Color Flow revealed no significant aortic regurgitation or stenosis. MITRAL VALVE Doppler and Color Flow revealed trace mitral regurgitation. Doppler and Color Flow revealed no mitral valve prolapse or stenosis noted. TRICUSPID VALVE Doppler and Color Flow revealed trace tricuspid regurgitation. The pulmonary artery systolic pressure is estimated at 22 mmHg. PULMONIC VALVE The pulmonary valve is normal in structure and function. Doppler and Color Flow revealed no pulmonic valvular regurgitation. GREAT VESSELS The aortic root is normal in size. The ascending aorta is normal in size. The pulmonary artery is nor mal. The IVC is normal in size and collapses >50% with inspiration. PERICARDIAL EFFUSION There is no evidence of significant pericardial effusion. Critical Notification Critical Value: No <Conclusion> The left ventricular systolic function is normal. The Ejection Fraction is 65-70%. There is normal LV segmental wall motion. Trace mitral regurgitation. Trace tricuspid regurgitation. The pulmonary artery systolic pressure is estimated at 22 mmHg. There is no evidence of significant pericardial effusion.
[2016-10-15 15:00] VITALS: BP 120/65
[2016-10-15] MEDS ORDERED: IBUP-1007 PO (15:55)
[2016-10-15 17:17] VITALS: BP 120/65
[2016-10-15] MEDS ORDERED: ATORVASTATIN CALCIUM 10 MG TABLET. PO SCH (21:00)
== END 2016-10-15 17:30 | disposition home or self-care (01) | DRG 392 ==
LOC: ER 01:42 → 6 SOUTH 02:00 → 2 SOUTH 02:00 → EEVIPCON 02:00 → UNDOADMIN 02:00
PROVIDERS: ADMIT Internal Medicine; ATTEND Internal Medicine
DX: K21.9 Gastro-esophageal reflux disease without esophagitis (principal); I25.119 Atherosclerotic heart disease of native coronary artery with unspecified angina pectoris; E11.9 Type 2 diabetes mellitus without complications; E66.9 Obesity, unspecified; E78.00 Pure hypercholesterolemia, unspecified; E78.5 Hyperlipidemia, unspecified; I10 Essential (primary) hypertension; Z79.1 Long term (current) use of non-steroidal anti-inflammatories (NSAID); Z82.49 Family history of ischemic heart disease and other diseases of the circulatory system; Z68.33 Body mass index [BMI] 33.0-33.9, adult; Z88.6 Allergy status to analgesic agent; Z83.3 Family history of diabetes mellitus
CPT/HCPCS: 36415; 71020; 78452; 80048; 80061; 80076; 83690; 83880; 84443; 84484; 85027; 93005; 93017; 93306; 96374; 96375; 96376; A9500; G0481; J2785; 99285-25